=== PATIENT | male | born 1965 | race Caucasian/White ===

== ENCOUNTER 2022-07-25 17:46 | Outpatient (REF) | payer OTHER, SELFPAY ==
--- NOTE | ~2022-07-25 | MR_ITS ---
EXAMINATION: MR CERVICAL SPINE WITHOUT AND WITH CONTRAST CLINICAL INFORMATION: Paresthesias in arms and legs. Rule out stenosis. Assess for demyelination. COMPARISON: None. TECHNIQUE: Multiplanar, multisequential imaging of the cervical spine was performed before and after the intravenous administration of 7.5 mL of Gadavist. FINDINGS: VERTEBRAL BODIES AND PARASPINAL SOFT TISSUES: There are advanced multilevel degenerative endplate changes and severe disc space narrowing throughout the cervical spine. Significant endplate edema and enhancement is present at multiple levels. There is disc desiccation with suspected partial endplate to endplate fusion changes at the C3-C4 level. Retrosubluxation evident at the C4-C5 level. There is a mild anterolisthesis at the T1-T2 level. Severe loss of disc height with broad-based disc bulges noted at the upper thoracic levels with mild endplate edema and enhancement posteriorly. There are no compression fractures. Mild leftward cervical spinal curvature. The paraspinal soft tissues appear normal. No abnormal soft tissue enhancement is seen. The vertebral artery flow-voids are maintained. The imaged portions of the lungs are grossly clear. CERVICOMEDULLARY JUNCTION AND VISUALIZED POSTERIOR FOSSA: The craniovertebral junction and imaged portions of the brain parenchyma demonstrate no acute abnormality. No pathologic intradural enhancement visible on the postcontrast acquisitions. SPINAL LEVELS: C2-C3: Mild disc bulge and endplate spurring with exuberant facet arthropathy, worse on the right side resulting in severe right foraminal encroachment and moderate left foraminal narrowing. Durn-gg-[id number] central canal stenosis. C3-C4: Disc desiccation and suspected endplate fusion changes with ossific ridging resulting in mild central canal stenosis and iktc-dv-llsnxinx foraminal narrowing. Partial ankylosis of the facet joints as well. Mild edema in the left articular processes. C4-C5: Retrosubluxation and broad-based disc-osteophyte complex with hypertrophic facet arthropathy and thickening of the ligamentum flavum resulting in severe central canal stenosis and cord compression with effacement of CSF. No cord signal change is evident. Severe bilateral foraminal narrowing. C5-C6: Disc-osteophyte complex with severe foraminal narrowing and facet arthropathy. Thickening of the ligamentum flavum with high-grade central canal stenosis and cord compression. Perceived mild T2 hyperintense signal change in the cord may reflect chronic myelomalacia. C6-C7: Disc-osteophyte complex and facet arthropathy with thickening of the ligamentum flavum results in severe central canal stenosis and cord compression with significant foraminal encroachment. Mild T2 hyperintense signal change in the cord may represent edema and/or myelomalacia. C7-T1: Disc-osteophyte complex without central canal stenosis. Severe bilateral foraminal narrowing, worse on the left side. MR/MR cervical spine wo/w con IMPRESSION: 1. Extensive multilevel cervical spondylosis with significant reactive endplate edema and enhancement, particularly from the C3 through the C7 levels. 2. Severe central canal stenosis and cord compression at the C4-C5, C5-C6, and C6-C7 levels. Mild amount of signal change in the cord at these levels may represent chronic myelomalacia, though underlying mild intramedullary edema at the C6-C7 level cannot be ruled out. Demyelinating disease is felt to be less likely. Significant multilevel foraminal narrowing as well. 3. Sytd-fw-ooibvdax central canal stenosis at the C2-C3 level with ledeztsc-rx-zjnybd foraminal narrowing, more so on the right side.
== END 2022-07-25 17:47 | disposition home or self-care (01) ==
LOC: HO.MRI 17:46
PROVIDERS: PCP Internal Medicine; Visit Provider Internal Medicine
DX: R20.2 Paresthesia of skin (principal); M62.81 Muscle weakness (generalized); M48.04 Spinal stenosis, thoracic region; G35 Multiple sclerosis
CPT/HCPCS: 72156; A9585

== ENCOUNTER 2024-07-31 06:09 | Emergency (ER) | payer OTHER, SELFPAY ==
--- NOTE | ~2024-07-31 | XR_ITS ---
EXAMINATION: XR SHOULDER, LEFT CLINICAL INFORMATION: Shoulder pain. Unable to lift shoulder COMPARISON: Chest radiograph 03/16/2009, report only TECHNIQUE: Two views of the left shoulder. FINDINGS: There is calcification seen in the supraspinatus tendon. No fractures or dislocations. The glenohumeral and AC joint appear normal on these limited views. Degenerative changes are present throughout the visualized spine. . XR/XR shoulder LT min 2V IMPRESSION: Calcific tendinitis of the supraspinatus tendon. Electronically signed by: Sreedhar Amato MD 07/31/2024 09:39 AM NAHED
[2024-07-31 06:14] VITALS: BP 154/84; PULSE 75; RESP 16; TEMP 36.3; O2SAT 97; BMI 26.6
--- NOTE | 2024-07-31 06:41 | PC.NURSE ---
Radiology to bedside for xray.
--- NOTE | 2024-07-31 06:48 | ED_ITS ---
HPI - General Adult General Chief complaint: Extremity Problem Stated complaint: L Shoulder pain Time Seen by Provider: 07/31/24 06:40 Source: patient Mode of arrival: ambulatory Limitations: no limitations History of Present Illness ED Provider: Ely Reilly PA-C HPI narrative: Patient is a 59 year old assigned male at with no reported medical history presenting to the emergency department today with left shoulder pain. Patient states that over the last 2 days he has been having left shoulder pain with the inability to lift it all the way. 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 Patient denies any dizziness, lightheadedness, abdominal pain, nausea, vomiting, fever, chills, blurry vision, double vision, loss of vision, chest pain, difficulty breathing, shortness of breath, back pain, night sweats, pain with urination, increased urinary frequency, increased urinary urgency, blood in his urine or stool, syncope or a near syncopal episode, bowel incontinence, bladder incontinence, or any other complaints at this time. Onset (ago): day(s) (2) Relieving factors: none Exacerbating factors: none Associated symptoms: denies other symptoms Treatments prior to arrival: none Related Data Previous Rx's ?Medication ?Instructions ?Recorded prednisone 20 mg tablet 20 mg PO DAILY 7 days #7 tabs 07/31/24 Allergies Allergy/AdvReac Type Severity Reaction Status Date / Time aspirin [ASPIRIN] AdvReac Mild STOMACH Unverified 07/31/24 06:17 UPSET Review of Systems Constitutional: Constitutional: Reports no additional constitutional complaints, Denies chills, Denies fever(s) and Denies night sweats Eyes: Eyes: Reports no additional eye complaints, Denies blurry vision, Denies change in vision, Denies diplopia, Denies eye discharge, Denies loss of vision and Denies eye pain ENT: Denies dizziness Cardiovascular: Cardiovascular: Reports no additional cardiovascular complaints, Denies chest pain, Denies lightheadedness, Denies Loss of Consciousness and Denies dyspnea Respiratory: Respiratory: Reports no additional respiratory complaints and Denies dyspnea Gastrointestinal: Gastrointestinal: Reports no additional gastrointestinal complaints, Denies abdominal pain, Denies melena, Denies hematochezia, Denies change in bowel habits and Denies change in stool character Genitourinary: Genitourinary: Reports no additional male genitourinary complaints, Denies hematuria, Denies oliguria, Denies difficulty urinating, Denies dysuria, Denies urinary frequency, Denies urinary hesitancy, Denies urinary incontinence and Denies urinary urgency Musculoskeletal: Musculoskeletal: Reports no additional musculoskeletal complaints, Denies numbness and Denies tingling Comments: left shoulder pain Neurologic: Denies dizziness, Denies loss of vision, Denies numbness and Denies tingling Psychiatric: Psychiatric: Reports no additional psychiatric complaints Endocrine: Endocrine: Reports no additional endocrine complaints Hematologic/Lymphatic: Hematologic/Lymphatic: Reports no additional h ematologic/lymphatic complaints Allergic/Immunologic: Allergic/Immunologic: Reports no additional allergic/immunologic complaints PMFSH Past Medical History Attestation statement: The following information was validated with the patient. Source: old records reviewed and nursing notes reviewed Social History Social History Smoked in Last 30 Days: No Use of substances other than those prescribed or required for medical reasons: No Advance Directives: No Advance Directives Information Provided: Yes Do you have a plan to hurt others: No Plan Physical Exam ED Vital Signs: Vital Signs - 24 hr 07/31/24 06:14 Temperature 97.4 F Pulse Rate 75 Respiratory Rate 16 Blood Pressure 154/84 H Pulse Oximetry 97 Oxygen Delivery Method Room Air BMI result Body Mass Index 26.6 Const General: cooperative, no acute distress, alert and awake Nutritional Appearance: well nourished Orientation/consciousness: patient oriented x3 Limitations: no limitations [facility] Head: Yes normal to inspection and Yes atraumatic Ears: hearing grossly normal bilaterally and external ears normal General nose exam: Normal external nose present, no nasal discharge noted and no epistaxis Face and sinus: Yes normal facial exam, No abrasion and No laceration Mouth: Normal oral and palatal mucosa present, no drooling and no muffled voice Eyes General: appearance normal, both eyes and all related structures Periorbital: periorbital findings normal Eyelids: Yes eyelids normal Conjunctivae: conjunctivae normal Pupils: Equal, round and reactive pupils present EOM: EOMs intact bilaterally Neck Neck: Yes normal visual inspection, Yes full ROM and Yes no lymphadenopathy Chest Chest palpation & inspection: normal inspection of the chest Resp Effort & Inspection: normal respiratory effort and able to speak in complete sentences GI Inspection: Yes normal to inspection Neuro General: patient oriented x3 and moves all extremities Cranial nerves: Yes Equal, round and reactive pupils present Cognition (Neuro): normal cognition Extrem Other: pain with left shoulder ROM pain with palpation of the medial aspect of the left humerus General: Yes normal to inspection and Yes capillary refill normal Psych Appearance: grossly normal Mental Status: mental status grossly normal Affect: normal affect Attitude: cooperative Thought process: Normal thought process present Thought content: Normal thought content present Insight: Good insight present (Psych) Medications Administered Discontinued Medications Generic Name Dose Route Start Last Admin Trade Name Rudolph PRN Reason Stop Dose Admin Methylprednisolone Sodium Succinate 60 mg 07/31/24 07:03 07/31/24 07:17 Methylprednisolone Sod Succ 125 Mg/2 Ml Vial IM 07/31/24 07:04 60 mg ONCE ONE Administration Medical Decision Making Medical Decision Making [facility] Narrative: Patient is a 59 year old assigned male at with no reported medical history presenting to the emergency department today with left shoulder pain. Patient's physical exam was as noted in the physical exam portion of this note. Patient's left shoulder x-ray showed no acute process. I explained my physical exam findings as well as all test results to the patient. I answered all questions asked by the patient. I stressed the importance of the patient taking his medication as directed (either prescribed or as the over the counter packaging recommends). I stressed the importance of the patient following up with his primary care provider. I stressed the importance of the patient returning to the emergency department immediately if his symptoms were to worsen or if he were to develop any dizziness, shortness of breath, difficulty breathing, chest pain, blurry vision, loss of vision, nausea, vomiting, abdominal pain, fever, chills, back pain, or any other complaints. Patient verbalized agreement and understanding with this treatment plan and discharge. Differential Diagnosis Differential Diagnoses: The differential diagnosis associated with the presentation includes Left rotator cuff injury Shoulder pain Tendonitis Admission/Observation Consideration of admission/observation: Escalation of care including admission/observation considered Patient would have been admitted to the hospital had his work up had any findings where hospital admission was appropriate and his clinical presentation warranted hospital admission. Independent Interpretation I performed an independent interpretation of an: Plain X-Ray Interpretation: My interpretation is in agreement with the radiologist's impression of this imaging study. EXAMINATION: XR SHOULDER, LEFT CLINICAL INFORMATION: Shoulder pain. Unable to lift shoulder COMPARISON: Chest radiograph 03/16/2009, report only TECHNIQUE: Two views of the left shoulder. FINDINGS: There is calcification seen in the supraspinatus tendon. No fractures or dislocations. The glenohumeral and AC joint appear normal on these limited views. Degenerative changes are present throughout the visualized spine. XR/XR shoulder LT min 2V IMPRESSION: Calcific tendinitis of the supraspinatus tendon. Electronically signed by: Sreedhar Amato MD 07/31/2024 09:39 AM EST Dictated By: Sreedhar Amato MD Signed By: Electronically signed by Sreedhar Amato MD 07/31/24 0939 Radiology Impression Discussion of test interpretation with radiology: I have reviewed the radiolog ist's reading. Discharge Plan Discharge Clinical Impression: Acute shoulder pain Patient Disposition: Home, Self-Care Instructions: Shoulder Pain (ED) Additional Instructions: Follow up with your primary care provider and an orthopedic provider. Return to the emergency department immediately if your symptoms worsen or if you develop any dizziness, shortness of breath, difficulty breathing, chest pain, blurry vision, loss of vision, nausea, vomiting, abdominal pain, fever, chills, back pain, or any other complaints. Prescriptions: New prednisone 20 mg tablet 20 mg PO DAILY 7 Days Qty: 7 0RF Referrals: [facility] [Provider Group] (Call to establish and follow up with an orthopedic provider. ) Adalid Casillas MD [Primary Care Provider] - Stand Alone Forms: Work/School Release Discharge Date/Time: 07/31/24 07:23 Print Language: Occitan
[2024-07-31] MEDS: methylPREDNISolone Sod Succ 125 MG/2 ML VIAL 60 MG IM (07:17)
== END 2024-07-31 07:23 | disposition home or self-care (01) ==
PROVIDERS: Emergency Provider Emergency Medicine; PCP Internal Medicine
DX: M25.512 Pain in left shoulder (principal)
CPT/HCPCS: 73030; 96372; 99284; J2919

== ENCOUNTER → 2025-04-08 17:27 | Outpatient (BNV) | payer OTHER, SELFPAY | PROVIDERS: PCP Internal Medicine; Visit Provider Radiology Diagnostic Radiology | DX: M50.30 Other cervical disc degeneration, unspecified cervical region (principal); M43.22 Fusion of spine, cervical region; M99.01 Segmental and somatic dysfunction of cervical region | CPT/HCPCS: 72141 ==

== ENCOUNTER 2025-04-08 18:15 | Outpatient (REF) | payer OTHER, SELFPAY ==
--- NOTE | ~2025-04-08 | MR_ITS ---
EXAMINATION: MR CERVICAL SPINE WITHOUT CONTRAST CLINICAL INFORMATION: Numbness in arms and legs, hyperreflexia. COMPARISON: 07/25/2022. TECHNIQUE: Multiplanar multisequence MR imaging of the cervical spine was done prior to and without the administration IV gadolinium. Examination was performed on a 1.5 Alyse Siemens unit, using standard sequences. FINDINGS: CORONAL ALIGNMENT: -There is a mild levoconvex scoliosis. SAGITTAL ALIGNMENT: -There is straightening of the normal lordosis. -There is a 2 mm degenerative retrolisthesis of C4 on C5. -There is a 2 mm degenerative anterolisthesis of T1 on T2. CRANIOCERVICAL JUNCTION/C1-2 ARTICULATIONS: -Intact and aligned. There are mild degenerative changes in the anterior atlantoaxial joint. VERTEBRAL BODIES/BONE MARROW: -There are prominent edematous endplate changes present spanning C4-T1, most notable at C7-T1. In addition there is edematous endplate change at T2-T3 and T3-T4 at the bottom of the scan. -There is no compression deformities, acute fracture, or suspicious bone lesion. -There have been decompressive laminectomies at C4, C5, and C6. -There is a hemangioma within the right aspect of T1. DISCS: -Severe multilevel disc degeneration present throughout the cervical region, most significant at C3-4, and C7-T1 where there is mildly high signal within the disc space. -Relative preservation of the C2-3 intervertebral disc. -Moderate degeneration in the upper thoracic spine at T2-3 and T3-4. CERVICAL CORD: -Cord is normal in caliber and signal throughout. There is no discrete signal abnormality, expansion, or thinning. There is grossly no region of cord impingement. PARAVERTEBRAL SOFT TISSUES: -No paravertebral or prevertebral soft tissue edema. -Postop scarring in the dorsal neck at C4-C6, secondary to laminectomies. -No abnormal fluid collections. -The thyroid is obscured by a saturation band. VISUALIZED INTRACRANIAL STRUCTURES: -Within normal limits. AXIAL DISC SPACE IMAGING: C2-C3: There is a shallow dorsal disc osteophytic ridge complex, mildly indenting upon the ventral thecal sac. This does not contact the cord. Moderate to severe right and moderate left hypertrophic facet changes. Mild posterior ligamentous thickening/infolding. There is mild central canal narrowing, minimal bilateral lateral recess narrowing right greater than left, and moderate right and mild left neural foraminal stenosis. No significant interval change. C3-C4: Irregular dorsal disc osteophytic ridge complex present, mildly indenting on the ventral thecal sac but not contacting the cord. Moderate to severe right and moderate left atrophic degenerative facet changes present. Mild left greater than right uncinate spurring. Dorsal ligamentous infolding. Combination of findings results in mild central canal stenosis, no significant lateral recess narrowing, although there is moderate right and mild left neural foraminal stenosis. No significant interval change. C4-C5: Interval decompressive laminectomies. The central canal has been decompressed. There is a shallow diffuse disc bulge, moderate bilateral hypertrophic degenerative facet changes, moderate bilateral uncinate spurring, with findings resulting in moderate to severe bilateral neural foraminal encroachment. There is no central canal narrowing. C5-C6: Interval decompressive laminectomies. The central canal has been decompressed. There is a shallow diffuse disc bulge, moderate bilateral hypertrophic facet changes, severe bilateral uncinate spurring, resulting in severe bilateral neural foraminal encroachment. There is no central canal narrowing. C6-C7: There is a diffuse disc osteophytic ridge complex present, indenting on the ventral thecal sac, and approaching the ventral aspect of the cord. There is mild dorsal ligamentous thickening/infolding. Moderate hypertrophic degenerative facet changes present bilaterally, with severe bilateral uncinate spurring. Findings are resulting in mild to moderate central canal narrowing, and severe bilateral neural foraminal encroachment. No significant interval change. C7-T1: Irregular disc osteophytic ridge complex present, indenting on the ventral thecal sac, and approaching but not definitively contacting the ventral aspect of the cord. There is mild dorsal ligamentous thickening/infolding. There are moderate bilateral hypertrophic facet changes present right greater than left, with severe bilateral uncinate spurring. Findings are resulting in mild to moderate central canal narrowing, and severe bilateral neural foraminal encroachment. No significant interval change. MR/MR cervical spine wo con IMPRESSION: 1. There have been interval decompressive laminectomies at C4-5 and C5-6. The central canal has been decompressed at these levels. 2. There has been no significant interval change in moderate to severe spondylosis at the nonoperative levels, with residual mild central canal narrowing at C2-C3 and C3-4, and mild to moderate central canal narrowing at C6-7 and C7-T1. 3. There is significant residual bilateral neural foraminal encroachment at C4-5, C5-6, C6-7, and C7-T1. 4. There is no definitive cord signal abnormality or residual impingement noted. There is no expansion or thinning of the cord. 5. There are significant edematous type endplate changes present spanning C4-T1, severe at C7-T1, and also involving T2-3 and T3-4. There is associated severe multilevel disc degeneration. See above for details. Electronically signed by: Milton Mason MD 04/09/2025 08:49 AM EDT
== END 2025-04-08 18:16 | disposition home or self-care (01) ==
LOC: HO.MRI 18:15
PROVIDERS: PCP Internal Medicine; Visit Provider Internal Medicine
DX: R20.2 Paresthesia of skin (principal); R29.2 Abnormal reflex
CPT/HCPCS: 72141

== ENCOUNTER 2025-04-24 18:33 | Outpatient (REF) | payer OTHER, SELFPAY ==
--- NOTE | ~2025-04-24 | MR_ITS ---
EXAMINATION: MR BRAIN WITHOUT IV CONTRAST HISTORY: ANESTHESIA OF SKIN, MUSCLE WEAKNESS, NUMBNESS TECHNIQUE: Sagittal T1, and axial T1, FLAIR, T2, gradient echo, and diffusion weighted MR images of the brain were obtained. COMPARISON: There are no prior studies available for comparison. FINDINGS: The pituitary is normal in size. The cerebellar tonsils are normally located. The brain parenchyma is unremarkable, demonstrating normal melgar/white differentiation. No foci of abnormal signal intensity are identified. The ventricular system is normal in size and configuration. There is no mass effect or midline shift. No intra or extra-axial fluid collections are identified. There are no foci of restricted diffusion. Normal vascular flow voids are noted in the basilar and carotid arteries. There is mucosal thickening in the bilateral ethmoid sinuses. There is a polyp versus mucous retention cyst in the left maxillary sinus. MR/MR head/brain wo con IMPRESSION: Unremarkable MRI of the brain without contrast. Electronically signed by: Rober Corrales MD 04/27/2025 07:16 AM EDT
== END 2025-04-24 18:34 | disposition home or self-care (01) ==
LOC: HO.MRI 18:33
PROVIDERS: PCP Internal Medicine; Visit Provider Internal Medicine
DX: M62.81 Muscle weakness (generalized) (principal); R20.0 Anesthesia of skin
CPT/HCPCS: 70551

== ENCOUNTER → 2025-04-24 19:22 | Outpatient (BNV) | payer OTHER, SELFPAY | PROVIDERS: PCP Internal Medicine; Visit Provider Radiology Diagnostic Radiology | DX: R53.1 Weakness (principal) | CPT/HCPCS: 70551 ==